=== PATIENT | female | born 1960 | race Caucasian/White ===

== ENCOUNTER 2025-04-08 10:10 | Outpatient (AMB) | payer OTHER, SELFPAY ==
--- OUTSIDE RECORDS SUMMARY | 2025-04-08 11:36 | XMS_ITS ---
Author Name [facility] Organization Unknown History of Medication Use Medication Directions Dispensed Refills Start Date End Date Stat us albuterol (PROVENTIL HFA; VENTOLIN HFA) 108 (90 Base) MCG/ACT inhaler Inhale 1-2 puffs 4 times daily (every 6 hours) as needed for wheezing. 05/25/2021 05/30/2023 active Allergies Allergen Reaction Severity Comment Documented Date Source Statu s ERYTHROMYCIN RASH/DERMATITIS 07/19/2017 [facility] active Problems Problem Status Onset Date Problem Type Date of Resoluti on Source Mild intermittent asthma in adult without complication active [facility] Immunizations Vaccine Date Source Lot Number Status Influenza High-Dose Quadriva lent,(FLUZONE HIGH-DOSE), Perservative Free IM 0.7 mL 65 years and older 06/04/2024 [facility] [id number] completed Influenza, Quadrivalent (FLU ARIX, AFLURIA, FLULAVAL, FLUZONE) Preservative Free IM 05/30/2023 [facility] [id number] completed Influenza (AFLURIA/FLUZONE) Inactivated/Split Quadrivalent with Preservative IM 05/31/2022 [facility] [id number] completed Influenza Inactivated/Split Preservative Free IM 05/25/2021 [facility] [id number] completed Influenza Inactivated/Split Preservative Free IM 05/19/2020 [facility] [id number] completed Influenza Inactivated/Split Preservative Free IM 05/15/2019 [facility] [id number] completed Influenza Inactivated/Split Preservative Free IM 07/18/2018 [facility] [id number] completed Influenza Inactivated/Split Preservative Free IM 07/19/2017 [facility] [id number] completed Encounters Encounter Type Encounter Reason Primary Diagnosis Location Date Ambulatory [facility] 06/04/2024 Ambulatory Mild intermittent asthma, uncomplicated Mild intermittent asthma, uncomplicated [facility] 06/04/2024 Ambulatory Mild intermittent asthma, uncomplicated Mild intermittent asthma, uncomplicated [facility] 05/30/2023 Ambulatory Mild intermittent asthma, uncomplicated Mild intermittent asthma, uncomplicated [facility] 05/30/2023 Ambulatory Mild persistent asthma, uncomplicated [facility] 05/31/2022 Ambulatory Mild intermitten t asthma, uncomplicated [facility] 05/31/2022 Ambulatory Mild persistent asthma, uncomplicated [facility] 05/25/2021 Ambulatory Mild persistent asthma, uncomplicated [facility] 05/25/2021 Care Team Organization Name Specialty Phone Email Start Date End [facility] te [facility] Primary Care 05/31/2022 11/04/2024 [facility] 05/25/2021 05/31/2022
--- OUTSIDE RECORDS SUMMARY | 2025-04-08 11:36 | XMS_ITS | Clinical Summary ---
Author Organization [facility] Address [address] [place] [address] Care Team Providers Care Stem Roller Name Role Phone Juan C Garcia MD Primary Care Provider [phone] Tyler Colbert MD Unavailable [phone] Allergies Active Allergy Reactions Criticality Noted Date Comments Erythromycin Rash/Dermatitis Medium 07/19/2017 Medications EPINEPHrine (EPIPEN 2-ARTHUR) 0.3 mg/0.3 mL IJ auto-injection EpiPen 2-Arthur 0.3 mg/0.3 mL injection, auto-inject or Active albuterol (PROVENTIL HFA; VENTOLIN HFA) 108 (90 Base) MCG/ACT inhalerIndication s:Environmental allergies Inhale 1-2 puffs 4 times daily (every 6 hours) as needed for wheezing. 1 each 5 05/30/2023 Active Albuterol-Budeson bethany 90-80 MCG/ACT Aerosol Inhale 1-2 puffs 4 times daily (every 6 hours) as needed (wheezing or SOB). Active montelukast (SINGULAIR) 10 MG tabletIndications :Mild intermittent asthma in adult without complication Take 1 tablet (10 mg total) by mouth nightly. 90 tablet 3 06/26/2024 Active Immunizations Immunization Administration Dates Next Due Influenza (AFLURIA/FLUZONE) Inactivated/Split Quadrivalent with Preservative IM 05/31/2022 Influenza High-Dose Quadrivalent,(FLUZONE HIGH-DOSE), Perservative Free IM 0.7 mL 65 years and older 06/04/2024 Influenza Inactivated/Split Preservative Free IM 05/25/2021,05/19/2020,05/15/2019,2017,07/19/2017 Influenza, Quadrivalent (FLU ARIX, AFLURIA, FLULAVAL, FLUZONE) Preservative Free IM 05/30/2023 Family History Medical History Relation Name Comments Colon cancer Brother Heart attack Father Prostate cancer Father Lung cancer Mother Breast cancer Sister 1 Breast cancer Sister 2 Relation Name Status Comments Brother Alive Father Mother Sister 1 Alive Sister 2 Alive Social History Tobacco Use Types Packs/Day Years Used Date Smoking Tobacco: Former Cigarettes Smokeless Tobacco: Never Tobacco Cessation:Counseling Given: Not Answered Comments:quit 1994 Alcohol Use Standard Drinks/Week Comments Yes 0 (1 standard drink = 0.6 oz pur e alcohol) wine every few weeks Comments Unknown Sex and Gender Information Value Date Recorded Sex Assigned at Not on file Legal Sex Female 6:47 PM EDT Gender Identity Not on file Sexual Orientation Not on file 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 Not on file Not on file Last Filed Vital Signs Vital Sign Reading Time Taken Comments Blood Pressure 110/74 06/04/2024 9:12 AM EDT Pulse 67 06/04/2024 9:12 AM EDT Temperature - - Respiratory Rate 18 06/04/2024 9:12 AM EDT Oxygen Saturation 98% 06/04/2024 9:12 AM EDT Inhaled Oxygen Concentration - - Weight 60.8 kg (134 lb) 06/04/2024 9:12 AM EDT Height 160 cm (5' 3 ) 06/04/2024 9:12 AM EDT Body Mass Index 23.74 06/04/2024 9:12 AM EDT Plan of Treatment Upcoming Encounters Date Type Department Care Team (Late st Contact Info) Description 06/10/2025 9:00 AM EDT Office Visit [facility] Pulmonary [place] [address] [phone] Sylvia Balderrama MD [address] [phone] Health Maintenance Due Date Last Done Comments Hepatitis C Virus Screening 1960 DTaP/Tdap/Td Vaccines (1 - Tdap) 1977 Pneumococcal Vaccines 50+ (1 of 2 - PCV) 1977 Mammogram 1998 Colonoscopy 2003 Zoster (Shingles) Vaccine (1 of 2) 2008 RSV Vaccine 60 years and older and Patients (1 - Risk 60-74 years 1-dose series) 2018 DXA Bone Density (Females,Ages 65 and older) 2023 COVID-19 Vaccine ( season) 2024 07/10/2021, 12/07/2020, 11/14/2020 Influenza Vaccine 03/19/2025 06/04/2024, , 05/31/2022, Additional history exists Hepatitis B Vaccines Aged Out No long er eligible based on patient's age to complete this topic Insurance [facility] [place] [facility] Care Teams Stem Roller Relationship Specialty Start Date End Date Juan C Garcia MD [address] [place] [address] PCP - General 07/18/18 Tyler Colbert MD 75 [facility] [address] [place] [address] Consulting Provider Otolaryngology 07/18/18
== END 2025-04-08 13:33 | disposition home or self-care (01) ==
LOC: HO.HMGAL 10:10
PROVIDERS: Visit Provider Registered Nurse Emergency
DX: J30.89 Other allergic rhinitis (principal)
CPT/HCPCS: 95117; 95165

== ENCOUNTER 2025-05-05 14:08 | Outpatient (AMB) | payer OTHER, SELFPAY ==
--- OUTSIDE RECORDS SUMMARY | 2025-05-05 17:53 | XMS_ITS | Encounter Summary ---
Author Organization [facility] Address [address] [place] [address] Care Team Providers Care Shell Maker Lockstitch Name Role Phone Juan C Garcia MD Primary Care Provider [phone] Tyler Colbert MD Unavailable Encounter Details Date Type Department Care Team (Late Contact Info) Description 05/05/2025 Telephone [facility] Pulmonary [place] [address] [phone] Sylvia Balderrama MD [address] [address] Social History Tobacco Use Types Packs/Day Years Used Date Smoking Tobacco: Former Cigarettes Smokeless Tobacco: Never Comments:quit 1994 Alcohol Use Standard Drinks/Week Comments [...] file Not on file Not on file documented as of this encounter Miscellaneous Notes * Telephone Encounter - Uli Neil MA - 05/05/2025 3:31 PM EDT A user error has taken place: encounter opened in error, closed for administrative reasons. documented in this encounter Plan of Treatment Upcoming Encounters Date Type Department Care Team ([facility] Contact Info) Description 06/10/2025 9:00 AM EDT Office Visit [facility] Pulmonary [place] [address] [place] [address] Sylvia Balderrama MD [address] [place], [place] [address] documented as of this encounter Visit Diagnoses Not on filedocumented in this encounter Care Teams Shell Maker Lockstitch Relationship Specialty Start Date End Date Juan C Garcia MD [address] [place] [address] PCP - General 07/18/18 Tyler Colbert MD [address] [place] [address] [address] [place] [address] Consulting Provider Otolaryngology 07/18/18 documented as of this encounter
--- OUTSIDE RECORDS SUMMARY | 2025-05-05 17:53 | XMS_ITS | Encounter Summary ---
Author Organization [facility] Address [address] [place] [address] Care Team Providers Care Lead Custodian Name Role Phone Juan C Garcia MD Primary Care Provider [phone] Tyler Colbert MD Unavailable [phone] Reason for Visit * Reason Onset Date Comments Medication Refill 05/05/2025 Encounter Details Date Type Department Care Team (Late Contact Info) Description 05/05/2025 Refill [facility] Pulmonary [place] [address] [place] [address] Sylvia Balderrama MD [address] [place] [phone] Mild intermittent asthma in adult without complication (Primary Dx) Social History Tobacco Use Types Packs/Day Years [...] on file documented as of this encounter Plan of Treatment Upcoming Encounters Date Type Department Care Team (Late Contact Info) Description 06/10/2025 9:00 AM EDT Office Visit [facility] Pulmonary [place] [address] [place] [address] Sylvia Balderrama MD [address] [facility] [address] [place], [place] [phone] documented as of this encounter Visit Diagnoses Diagnosis Mild intermittent asthma in adult without complication- Primary documented in this encounter Care Teams Lead Custodian Relationship Specialty Start Date End Date Juan C Garcia MD [address] [place] [address] PCP - General 07/18/18 Tyler Colbert MD [address] [place] [address] [address] [place] [address] Consulting Provider Otolaryngology 07/18/18 documented as of this encounter
--- OUTSIDE RECORDS SUMMARY | 2025-05-05 17:53 | XMS_ITS | Encounter Summary ---
Author Organization [facility] Address [address] [place] [address] Care Team Providers Care Loader Operator Supervisor Name Role Phone Juan C Garcia MD Primary Care Provider [phone] Tyler Colbert MD Unavailable Encounter Details Date Type Department Care Team ([facility] Contact Info) Description 07/19/2017 Scanned Document [facility] [address] [place] [phone] Quan Miller MD [address] [place] [address] Social History Tobacco Use Types Packs/Day Years [...] Upcoming Encounters Date Type Department Care Team ([facility] Contact Info) Description 06/10/2025 9:00 AM EDT Office Visit [facility] Pulmonary [place] [address] [phone] Sylvia Balderrama MD 455 [place] [address] documented as of this encounter Visit Diagnoses Not on filedocumented in this encounter Care Teams Loader Operator Supervisor Relationship Specialty Start Date End Date Juan C Garcia MD [address] [place] [address] PCP - General 07/18/18 Tyler Colbert MD 75 [facility] 6 [place] [address] Consulting Provider Otolaryngology 07/18/18 documented as of this encounter
--- OUTSIDE RECORDS SUMMARY | 2025-05-05 17:53 | XMS_ITS | Clinical Summary ---
Author Organization [facility] Address [address] [place] [address] Care Team Providers Care Medical Historian Name Role Phone Juan C Garcia MD Primary Care Provider Tyler Colbert MD Unavailable [phone] Allergies Active Allergy Reactions Criticality Noted Date Comments Erythromycin Rash/Dermatitis Medium 07/19/2017 Medications EPINEPHrine (EPIPEN 2-ARTHUR) 0.3 mg/0.3 mL IJ auto-injection EpiPen 2-Arthur 0.3 mg/0.3 mL injection, auto-injector Active albuterol (PROVENTIL HFA; VENTOLIN HFA) 108 (90 Base) MCG/ACT inhalerIndicatio ns:Environmental allergies Inhale 1-2 puffs 4 times daily (every 6 hours) as needed for wheezing. 1 each 5 3 Active Albuterol-Budeso nide 90-80 MCG/ACT Aerosol Inhale 1-2 puffs 4 times daily (every 6 hours) as needed (wheezing or SOB). Active montelukast (SINGULAIR) 10 MG tabletIndication s:Mild intermittent asthma in adult without complication Take 1 tablet (10 mg total) by mouth nightly. 90 tablet 3 4 Active albuterol (PROVENTIL) (0.083%) 2.5 mg/3 mL nebulizer solutionIndicati ons:Mild intermittent asthma in adult without complication Take 3 mL (2.5 mg total) by nebulization 4 (four) times a day. 360 mL 3 5 Active Encounters Date Type Department Care Team Description 05/05/2025 Refill [facility] Pulmonary [place] [address] [facility] 206 [place] [address] Sylvia Balderrama MD Mild intermittent asthma in adult without complication (Primary Dx) 05/05/2025 Telephone [facility] Pulmonary [place] Velia Mahan [address] [place] [address] Sylvia Balderrama MD from Last 3 Months Immunizations Immunization Administration Dates Next Due Influenza [...] Description 06/10/2025 9:00 AM EDT Office Visit [facility] Pulmonary [place] [address] [facility] 206 [place] [address] Sylvia Balderrama MD [address] [facility] 206 [place], [place] [phone] Health Maintenance Due Date Last Done Comments Advance Care Planning 1960 Hepatitis C Virus Screening 1958 DTaP/Tdap/Td Vaccines (1 - Tdap) 1977 Pneumococcal Vaccines 50+ (1 of 2 - PCV) 1977 Mammogram 1998 Colonoscopy 2003 Zoster (Shingles) Vaccine (1 of 2) 2008 RSV Vaccine 60 years and older and Patients (1 - Risk 60-74 years 1-dose series) 2018 DXA Bone Density (Females,Ages 65 and older) 2023 Influenza Vaccine 03/19/2025 06/04/2024, , 05/31/2022, Additional history exists COVID-19 Vaccine (2024- season) 2025 07/10/2021, 12/07/2020, 11/14/2020 Hepatitis B Vaccines Aged Out No long er eligible based on patient's age to complete this topic Insurance [facility] [place] [facility] Care Teams Medical Historian Relationship Specialty Start Date End Date Juan C Garcia MD [address] [place] [address] PCP - General 07/18/18 Tyler Colbert MD 75 [facility] [address] [place] [address] Consulting Provider Otolaryngology 07/18/18
--- OUTSIDE RECORDS SUMMARY | 2025-05-05 17:53 | XMS_ITS | Encounter Summary ---
Author Organization [facility] Address [address] [place] [address] Care Team Providers Care Medical Oncologist Name Role Phone Juan C Garcia MD Primary Care Provider [phone] Tyler Colbert MD Unavailable Encounter Details Date Type Department Care Team ([facility] Contact Info) Description 11/21/2020 Scanned Document [facility] [address] [place] [phone] Quan Miller MD [address] [place] [address] Social History Tobacco Use Types Packs/Day Years [...] Upcoming Encounters Date Type Department Care Team ([facility] Contact Info) Description 06/10/2025 9:00 AM EDT Office Visit [facility] Pulmonary [place] [address] [phone] Sylvia Balderrama MD 455 [facility] 206 [place] [address] documented as of this encounter Visit Diagnoses Not on filedocumented in this encounter Care Teams Medical Oncologist Relationship Specialty Start Date End Date Juan C Garcia MD [address] [place] [address] PCP - General 07/18/18 Tyler Colbert MD 75 [facility] [address] [place] [address] Consulting Provider Otolaryngology 07/18/18 documented as of this encounter
--- OUTSIDE RECORDS SUMMARY | 2025-05-05 17:53 | XMS_ITS | Encounter Summary ---
Author Organization [facility] Address [address] [place] [address] Care Team Providers Care Process Description Writer Name Role Phone Juan C Garcia MD Primary Care Provider [phone] Tyler Colbert MD Unavailable [phone] Encounter Details Date Type Department Care Team ([facility] Contact Info) Description 03/02/2019 Scanned Document [facility] [address] [place] [phone] Juan C Garcia MD [address] [place] [address] Social History Tobacco Use Types Packs/Day Years [...] Upcoming Encounters Date Type Department Care Team ([facility] Contact Info) Description 06/10/2025 9:00 AM EDT Office Visit [facility] Pulmonary [place] [address] [phone] Sylvia Balderrama MD 455 [place] [address] documented as of this encounter Visit Diagnoses Not on filedocumented in this encounter Care Teams Process Description Writer Relationship Specialty Start Date End Date Juan C Garcia MD [address] [place] [address] PCP - General 07/18/18 Tyler Colbert MD 75 [facility] [address] [place] [address] Consulting Provider Otolaryngology 07/18/18 documented as of this encounter
--- OUTSIDE RECORDS SUMMARY | 2025-05-05 17:53 | XMS_ITS | Encounter Summary ---
Author Organization [facility] Address [address] [place] [address] Care Team Providers Care Binder Sorter Name Role Phone Juan C Garcia MD Primary Care Provider Tyler Colbert MD Unavailable [phone] Encounter Details Date Type Department Care Team (Late Contact Info) Description 10/02/2022 Scanned Document [facility] [address] [place] [phone] Juan C Garcia MD [address] [place] [address] Social History Tobacco Use Types Packs/Day Years [...] Description 06/10/2025 9:00 AM EDT Office Visit [facility] Pulmonary [place] [address] [phone] Sylvia Balderrama MD 455 [facility] 206 [place] [address] documented as of this encounter Visit Diagnoses Not on filedocumented in this encounter Care Teams Binder Sorter Relationship Specialty Start Date End Date Juan C Garcia MD [address] [place] [address] PCP - General 07/18/18 Tyler Colbert MD 75 [facility] [address] [place] [address] Consulting Provider Otolaryngology 07/18/18 documented as of this encounter
--- OUTSIDE RECORDS SUMMARY | 2025-05-05 17:53 | XMS_ITS | Encounter Summary ---
Author Organization [facility] Address [address] [place] [address] Care Team Providers Care Pharmacology Associate Name Role Phone Juan C Garcia MD Primary Care Provider [phone] Tyler Colbert MD Unavailable [phone] Encounter Details Date Type Department Care Team ([facility] Contact Info) Description 07/21/2018 Scanned Document [facility] [address] [place] [phone] Quan Miller MD [address] [place] [address] Social History Tobacco Use Types Packs/Day Years [...] Upcoming Encounters Date Type Department Care Team ([facility] Contact Info) Description 06/10/2025 9:00 AM EDT Office Visit [facility] Pulmonary [place] [address] [phone] Sylvia Balderrama MD [address] [place] [address] documented as of this encounter Visit Diagnoses Not on filedocumented in this encounter Care Teams Pharmacology Associate Relationship Specialty Start Date End Date Juan C Garcia MD [address] [place] [address] PCP - General 07/18/18 Tyler Colbert MD 75 [facility] 6 [place] [address] Consulting Provider Otolaryngology 07/18/18 documented as of this encounter
--- OUTSIDE RECORDS SUMMARY | 2025-05-05 17:53 | XMS_ITS | Encounter Summary ---
Author Organization [facility] Address [address] [place] [address] Care Team Providers Care Shoe Cobbler Name Role Phone Juan C Garcia MD Primary Care Provider [phone] Tyler Colbert MD Unavailable [phone] Encounter Details Date Type Department Care Team ([facility] Contact Info) Description 05/15/2019 Scanned Document [facility] [address] [place] [phone] Quan Miller MD [address] [place] [address] Social History Tobacco Use Types Packs/Day Years [...] Encounters Date Type Department Care Team ([facility] Contact Info) Description 06/10/2025 9:00 AM EDT Office Visit [facility] Pulmonary [place] [address] [phone] Sylvia Balderrama MD [address] [place] [address] documented as of this encounter Visit Diagnoses Not on filedocumented in this encounter Care Teams Shoe Cobbler Relationship Specialty Start Date End Date Juan C Garcia MD [address] [place] [address] PCP - General 07/18/18 Tyler Colbert MD 75 [facility] 6 [place] [address] Consulting Provider Otolaryngology 07/18/18 documented as of this encounter
== END 2025-05-05 14:14 | disposition home or self-care (01) ==
LOC: HO.HMGAL 14:08
PROVIDERS: PCP Internal Medicine; Visit Provider Registered Nurse Emergency
DX: J30.89 Other allergic rhinitis (principal)
CPT/HCPCS: 95117; 95165

== ENCOUNTER 2025-06-16 15:52 | Outpatient (AMB) | payer OTHER, SELFPAY ==
--- OUTSIDE RECORDS SUMMARY | 2025-06-16 20:02 | XMS_ITS | Encounter Summary ---
Author Organization [facility] Address [address] [place] [address] Care Team Providers Care Trip Rider Name Role Phone Juan C Garcia MD Primary Care Provider [phone] Tyler Colbert MD Unavailable [phone] Encounter Details Date Type Department Care Team ([facility] Contact Info) Description 05/15/2019 Scanned Document [facility] [address] [place] [phone] Quan Miller MD [address] [place] [address] Social History Tobacco Use Types Packs/Day Years [...] Upcoming Encounters Date Type Department Care Team ([facility] Contact Info) Description 06/13/2026 9:20 AM EDT Office Visit [facility] Pulmonary [address] [phone] Christopher Sewell MD [address] [place] [phone] documented as of this encounter Visit Diagnoses Not on filedocumented in this encounter Care Teams Trip Rider Relationship Specialty Start Date End Date Juan C Garcia MD [address] [place] [address] PCP - General 07/18/18 Tyler Colbert MD 75 [facility] [address] [place] [address] Consulting Provider Otolaryngology 07/18/18 documented as of this encounter
--- OUTSIDE RECORDS SUMMARY | 2025-06-16 20:02 | XMS_ITS | Clinical Summary ---
Author Organization Formerly [facility] Address [address] [place] [address] Care Team Providers Care Infrastructure Software Engineer Name Role Phone Juan C Garcia MD Primary Care Provider [phone] Tyler Colbert MD Unavailable [phone] Allergies Active Allergy Reactions Criticality Noted [...] a day. 360 mL 3 5 Active Active Problems No known active problems Encounters Date Type Department Care Team Description 06/10/2025 9:00 AM EDT Office Visit [facility] [place] [address] [place] [phone] Sylvia Balderrama MD Moderate persistent asthma without complication (Primary Dx) 06/10/2025 Travel 05/05/2025 Refill [facility] [place] [address] [facility] [address] [place] [phone] Sylvia Balderrama MD Mild intermittent asthma in adult without complication (Primary Dx) 05/05/2025 Telephone [facility] [place] [address] [facility] [address] [place] [phone] Sylvia Baldrerama MD from Last 3 Months Immunizations Immunization Administration Dates Next Due Influenza (AFLURIA/FLUZONE) Inactivated/Split Quadrivalent with Preservative IM 05/31/2022 Influenza High-Dose Quadrivalent,(FLUZONE HIGH-DOSE), Perservative Free IM 0.7 mL 65 years and older 06/04/2024 Influenza Inactivated/Split Preservative Free IM 05/25/2021,05/19/2020,05/15/2019,2017,07/19/2017 Influenza, Quadrivalent (FLU ARIX, AFLURIA, FLULAVAL, FLUZONE) Preservative Free IM 05/30/2023 Influenza, Trivalent (FLUAD) Adjuvanted Preservative Free IM 65 years and older 06/10/2025 Family History Medical History Relation Name Comments [...] Sign Reading Time Taken Comments Blood Pressure 142/73 06/10/2025 8:56 AM EDT Pulse 75 06/10/2025 8:56 AM EDT Temperature - - Respiratory Rate 18 06/10/2025 8:56 AM EDT Oxygen Saturation 99% 06/10/2025 8:56 AM EDT Inhaled Oxygen Concentration - - Weight 62.6 kg (138 lb) 06/10/2025 8:56 AM EDT Height 160 cm (5' 3 ) 06/10/2025 8:56 AM EDT Body Mass Index 24.45 06/10/2025 8:56 AM EDT Plan of Treatment Upcoming Encounters Date Type Department Care Team (Late st Contact Info) Description 06/13/2026 9:20 AM EDT Office Visit [facility] [place] [address] [phone] Christopher Sewell MD [address] [address] Health Maintenance Due Date Last Done Comments Advance Care Planning 1960 Hepatitis C Virus Screening 1958 DTaP/Tdap/Td Vaccines (1 - Tdap) 1977 Pneumococcal Vaccines 50+ (1 of 2 - PCV) 1977 Mammogram 1998 Colonoscopy 2003 RSV Vaccine 50 years and older and Patients (1 - Risk 50-74 years 1-dose series) 2008 Zoster (Shingles) Vaccine (1 of 2) 2008 DXA Bone Density (Females,Ages 65 and older) 2023 COVID-19 Vaccine ( - season) 2025 07/08/2023, 07/10/2021, 12/07/2020, Additional history exists Influenza Vaccine Completed 06/10/2025, , 05/19/2024, Additional history exists Hepatitis B Vaccines Aged Out No long er eligible based on patient's age to complete this topic Insurance [facility] Care Teams Infrastructure Software Engineer Relationship Specialty Start Date End Date Juan C Garcia MD [address] [place] [address] PCP - General 07/18/18 Tyler Colbert MD [address] [place] [address] [address] [place] [address] Consulting Provider Otolaryngology 07/18/18
--- OUTSIDE RECORDS SUMMARY | 2025-06-16 20:02 | XMS_ITS | Encounter Summary ---
Author Organization [facility] Address [address] [place] [address] Care Team Providers Care Shift Leader Name Role Phone Juan C Garcia MD Primary Care Provider [phone] Tyler Colbert MD Unavailable [phone] Encounter Details Date Type Department Care Team ([facility] Contact Info) Description 07/19/2017 Scanned Document [facility] [address] [place] [phone] Quan Miller MD [address] [place] [address] Social History Tobacco Use Types Packs/Day Years [...] Upcoming Encounters Date Type Department Care Team ([facility] Contact Info) Description 06/13/2026 9:20 AM EDT Office Visit [facility] [address] [phone] Christopher Sewell MD [address] [place] [phone] documented as of this encounter Visit Diagnoses Not on filedocumented in this encounter Care Teams Shift Leader Relationship Specialty Start Date End Date Juan C Garcia MD [address] [place] [address] PCP - General 07/18/18 Tyler Colbert MD 75 [facility] [address] [place] [address] Consulting Provider Otolaryngology 07/18/18 documented as of this encounter
--- OUTSIDE RECORDS SUMMARY | 2025-06-16 20:02 | XMS_ITS | Encounter Summary ---
Author Organization [facility] Address [address] [place] [address] Care Team Providers Care Booth Operator Name Role Phone Juan C Garcia MD Primary Care Provider [phone] Tyler Colbert MD Unavailable [phone] Encounter Details Date Type Department Care Team ([facility] Contact Info) Description 07/21/2018 Scanned Document [facility] [address] [place] [phone] Quan Miller MD [address] [place] [address] Social History Tobacco Use Types Packs/Day Years [...] Upcoming Encounters Date Type Department Care Team ([facility] Contact Info) Description 06/13/2026 9:20 AM EDT Office Visit [facility] [address] [phone] Christopher Sewell MD [address] [place] [phone] documented as of this encounter Visit Diagnoses Not on filedocumented in this encounter Care Teams Booth Operator Relationship Specialty Start Date End Date Juan C Garcia MD [address] [place] [address] PCP - General 07/18/18 Tyler Colbert MD 75 [facility] [address] [place] [address] Consulting Provider Otolaryngology 07/18/18 documented as of this encounter
--- OUTSIDE RECORDS SUMMARY | 2025-06-16 20:02 | XMS_ITS | Encounter Summary ---
Author Organization [facility] Address [address] [place] [address] Care Team Providers Care Open Developer Operator Name Role Phone Juan C Garcia MD Primary Care Provider [phone] Tyler Colbert MD Unavailable [phone] Encounter Details Date Type Department Care Team ([facility] Contact Info) Description 11/21/2020 Scanned Document [facility] [address] [phone] Quan Miller MD [address] [place] [address] Social History Tobacco Use Types Packs/Day Years [...] Department Care Team (Late Contact Info) Description 06/13/2026 9:20 AM EDT Office Visit [facility] [address] [phone] Christopher Sewell MD [address] [place] [phone] documented as of this encounter Visit Diagnoses Not on filedocumented in this encounter Care Teams Open Developer Operator Relationship Specialty Start Date End Date Juan C Garcia MD [address] [place] [address] PCP - General 07/18/18 Tyler Colbert MD 75 [facility] [address] [place] [address] Consulting Provider Otolaryngology 07/18/18 documented as of this encounter
--- OUTSIDE RECORDS SUMMARY | 2025-06-16 20:02 | XMS_ITS | Encounter Summary ---
Author Organization [facility] Address [address] [place] [address] Care Team Providers Care Geophysical Data Technician Name Role Phone Juan C Garcia MD Primary Care Provider [phone] Tyler Colbert MD Unavailable [phone] Encounter Details Date Type Department Care Team (Late Contact Info) Description 03/02/2019 Scanned Document [facility] [address] [phone] Juan C Garcia MD [address] [place] [address] Social History Tobacco Use Types Packs/Day Years [...] Description 06/13/2026 9:20 AM EDT Office Visit [facility] [place] [address] [phone] Christopher Sewell MD [address] [address] documented as of this encounter Visit Diagnoses Not on filedocumented in this encounter Care Teams Geophysical Data Technician Relationship Specialty Start Date End Date Juan C Garcia MD [address] [place] [address] PCP - General 07/18/18 Tyler Colbert MD 75 [facility] [address] [place] [address] Consulting Provider Otolaryngology 07/18/18 documented as of this encounter
--- OUTSIDE RECORDS SUMMARY | 2025-06-16 20:02 | XMS_ITS | Encounter Summary ---
Author Organization [facility] Address [address] [place] [address] Care Team Providers Care Bonbon Dipper Name Role Phone Juan C Garcia MD Primary Care Provider [phone] Tyler Colbert MD Unavailable [phone] Encounter Details Date Type Department Care Team (Late Contact Info) Description 10/02/2022 Scanned Document [facility] [address] [place] [phone] Juan C Garcia MD [address] [place] [address] Social History Tobacco Use Types Packs/Day Years [...] Description 06/13/2026 9:20 AM EDT Office Visit [facility] [place] [address] [phone] Christopher Sewell MD [address] [address] documented as of this encounter Visit Diagnoses Not on filedocumented in this encounter Care Teams Bonbon Dipper Relationship Specialty Start Date End Date Juan C Garcia MD [address] [place] [address] PCP - General 07/18/18 Tyler Colbert MD [address] [facility] [address] [place] [address] Consulting Provider Otolaryngology 07/18/18 documented as of this encounter
== END 2025-06-16 15:52 | disposition home or self-care (01) ==
LOC: HO.HMGAL 15:52
PROVIDERS: PCP Internal Medicine; Visit Provider Registered Nurse Emergency
DX: J30.89 Other allergic rhinitis (principal)
CPT/HCPCS: 95117; 95165